=== PATIENT | male | born 1990 ===

== ENCOUNTER 2018-01-09 23:03 | Emergency (ER) | payer SELFPAY ==
[2018-01-09] MEDS ORDERED: Naloxone 0.4 mg/ml Inj (Adult) ONE ×3 (23:18→23:48)
[2018-01-09] MEDS ORDERED: Naloxone 0.4 mg/ml Inj (Adult) IVP ONE ×2 (23:27→23:47)
[2018-01-09] MEDS ORDERED: Sodium Chloride 0.9% 1,000 ML IV ONE (23:27)
--- NOTE | 2018-01-09 23:31 | C.PDOC ---
History Of Present Illness 27 year old male is brought to the ED by a group of friends who dropped him off at the waiting room. Patient is unresponsive, only responds to painful stimuli. Patient woke up after narcan was given and straight cath was inserted. Vital signs remain stable. Time Seen by Provider: 01/09/18 23:10 Chief Complaint (Nursing): Substance Abuse History Per: Other History/Exam Limitations: clinical condition Onset/Duration Of Symptoms: Hrs Current Symptoms Are (Timing): Still Present Suicide/Self Injury Attempted (Context): Ingestion Modifying Factor(s): Other Associated Symptoms: denies: Depression, Suicidal Thoughts, Suicidal Plan Involuntary Hold By: None Recent travel outside of the [place]: No Additional History Per: Friend Past Medical History Reviewed: Historical Data, Nursing Documentation, Vital Signs Vital Signs: Last Vital Signs Temp 98.2 F 01/10/18 01:37 Pulse 79 01/10/18 01:37 Resp 20 01/10/18 01:37 BP 123/74 01/10/18 01:37 Pulse Ox 97 01/10/18 01:46 - Medical History PMH: No Chronic Diseases Surgical History: No Surg Hx Family History: States: Unknown Family Hx - Social History Hx Tobacco Use: No Hx Alcohol Use: (UNKNOWN) Hx Substance Use: (UNKNOWN) Review Of Systems Review Of Systems: ROS cannot be obtained secondary to pt's inabilty to answer questions. Physical Exam - Physical Exam Appears: Other (unresponsive) Skin: Normal Color, Warm, Dry, No Rash Head: Atraumatic, Normacephalic, No Laceration Eye(s): bilateral: Other (dialated pupils 3-4 mm reactive ) Neck: Normal ROM, No Midline Cervical Tenderness, Supple Chest: Symmetrical Cardiovascular: Rhythm Regular Respiratory: Normal Breath Sounds, No Rales, No Rhonchi, No Wheezing Gastrointestinal/Abdominal: Soft, No Tenderness, No Guarding, No Rebound Extremity: Normal ROM, No Tenderness, No Swelling Extremity: Bilateral: Atraumatic Neurological/Psych: Other (unresponsive) Gait: Unable To Assess ED Course And Treatment - Laboratory Results Result Diagrams: 01/09/18 23:36 01/09/18 23:36 ECG: Interpreted By Me, Viewed By Me ECG Rhythm: Sinus Rhythm ECG Interpretation: Normal, No Acute Changes Interpretation Of ECG: NSR, normal tracings. Rate From EC (BPM) O2 Sat by Pulse Oximetry: 97 (ON RA) Pulse Ox Interpretation: Normal Progress Note: Patient is now alert, conscious and steady of gait,orientated, to be discharged. 0146H. Reevaluation Time: :46 Reassessment Condition: Improved Medical Decision Making Medical Decision Making: Plan: * EKG * Labs * Narcan 0.4 mg IVP * IV fluids * UA Disposition - Disposition Referrals: Non [facility] Provider, [Non-Staff] - [facility] [Outside] Disposition: HOME/ ROUTINE Disposition Time: :46 Condition: STABLE Instructions: Polysubstance Abuse Forms: Cover [employer] (Sinhala) - POA Present On Arrival: None - Clinical Impression Clinical Impression: Polysubstance abuse - Scribe Statement The provider has reviewed the documentation as recorded by the Scribe Scott Guerrero All medical record entries made by the Scribe were at my direction and personally dictated by me. I have reviewed the chart and agree that the record accurately reflects my personal performance of the history, physical exam, medical decision making, and the department course for this patient. I have also personally directed, reviewed, and agree with the discharge instructions and disposition.
[2018-01-09 23:40] LABS: BASO # 0.1 K/uL (0.0-0.2); BASO % 0.7 % (0.0-2.0); EOS # 0.3 K/uL (0.0-0.7); EOS % 3.5 % (0.0-4.0); HEMOGLOBIN 18.1 g/dL (12.0-18.0); LYMPH # 2.8 K/uL (1.0-4.3); LYMPH % 28.8 % (20.0-40.0); MEAN CELL VOLUME 86.1 fL (80.0-94.0); MEAN CORPUSCULAR HEMOGLOBIN 30.6 pg (27.0-31.0); MEAN CORPUSCULAR HGB CONC 35.5 g/dL (33.0-37.0); MEAN PLATELET VOLUME 9.1 fL (7.2-11.7); MONO # 0.8 K/uL (0.0-0.8); MONO % 7.7 % (0.0-10.0); NEUT # 5.8 K/uL (1.8-7.0); NEUT % 59.3 % (50.0-75.0); RBC 5.92 Mil/uL (4.40-5.90); RED CELL DISTRIBUTION WIDTH 13.3 % (11.5-14.5); WHITE BLOOD COUNT 9.8 K/uL (4.8-10.8)
[2018-01-09 23:44] LABS: URINE BILIRUBIN NEGATIVE (NEGATIVE); URINE BLOOD NEGATIVE (NEGATIVE); URINE CLARITY Hazy (Clear); URINE COLOR Amber (YELLOW); URINE GLUCOSE (UA) NORMAL (Normal); URINE LEUKOCYTE ESTERASE NEG Leu/uL (Negative); URINE PROTEIN NEGATIVE (NEGATIVE)
[2018-01-09 23:51] LABS: ALB/GLOB RATIO 1.6 (1.0-2.1); ALBUMIN 4.9 g/dL (3.5-5.0); ALT/SGPT 43 U/L (21-72); AST/SGOT 28 U/L (17-59); BLOOD UREA NITROGEN 16 mg/dL (9-20); CALCIUM 10.4 mg/dl (8.6-10.4); GFR AFRICAN-AMERICAN > 60; GFR NON-AFRICAN AMERICAN > 60
[2018-01-09 23:55] LABS: BARBITURATES, UR NEGATIVE (NEGATIVE); OPIATES, UR NEGATIVE (NEGATIVE); PHENCYCLIDINE, UR NEGATIVE (NEGATIVE)
[2018-01-09 23:58] LABS: BENZODIAZEPINES, UR POSITIVE (NEGATIVE)
[2018-01-10] MEDS ORDERED: Naloxone 0.4 mg/ml Inj (Adult) IVP ONE (00:01)
[2018-01-10 00:55] VITALS: RESP 20
[2018-01-10 01:38] VITALS: BP 123/74; PULSE 79; TEMP 98.2
[2018-01-10 01:46] VITALS: O2SAT 97
== END 2018-01-10 01:51 | disposition home or self-care (01) ==
LOC: SUPCPDRO 23:03 → C.ER 23:03
DX: F19.10 Other psychoactive substance abuse, uncomplicated (principal)
CPT/HCPCS: 80053; 81001; 82948; 85025; 96361; 96374; 96376; 99284; G0480; J2310; J7030